=== PATIENT | male | born 1960 | race African-American/Black ===

== ENCOUNTER 2020-01-14 12:58 | Emergency (ER) | payer OTHER ==
[~2020-01-14] VITALS: Ht 185.4 cm; Wt 110.0 kg
[2020-01-14 13:01] VITALS: BP 154/94
[2020-01-14 15:23] LABS: CHLORIDE 105 mEq/L (98-107)
[2020-01-14 15:25] LABS: BASOPHILS % 1.3 % (0.0-2.0); EOSINOPHILS % 1.4 % (0.0-5.0); HEMATOCRIT. 43.5 % (42.0-52.0); HEMOGLOBIN. 14.8 g/dL (14.0-18.0); LYMPHOCYTES % 31.1 % (20.0-50.0); MEAN CORPUSCULAR HEMOGLOBIN 32.9 pg (28.0-32.0); MEAN CORPUSCULAR VOLUME 96.7 fL (80.0-94.0); MEAN PLATELET VOLUME 6.9 fl (7.4-10.4); MONOCYTES % 12.9 % (2.0-8.0); NEUTROPHILS % 53.3 % (40.0-76.0); PLATELET 129 x1000/uL (130-400); RED CELL DISTRIBUTION WIDTH 15.4 % (11.6-14.6)
[2020-01-14 15:46] LABS: ETHANOL BLOOD 282 mg/dL
== END 2020-01-14 16:20 | disposition home or self-care (01) ==
LOC: ER 13:17
DX: F10.129 Alcohol abuse with intoxication, unspecified (principal); Y90.8 Blood alcohol level of 240 mg/100 ml or more; M54.5 Low back pain; I10 Essential (primary) hypertension
CPT/HCPCS: 36415; 80053; 80307; 80320; 80329; 85025; 93005; 99285; G0480

== ENCOUNTER 2020-01-15 06:33 | Emergency (ER) | payer OTHER ==
[~2020-01-15] VITALS: Ht 177.8 cm; Wt 84.0 kg
[2020-01-15 06:39] VITALS: BP 149/95
== END 2020-01-15 07:17 | disposition home or self-care (01) ==
LOC: ER 06:33
DX: F10.129 Alcohol abuse with intoxication, unspecified (principal); I10 Essential (primary) hypertension; Y90.9 Presence of alcohol in blood, level not specified
CPT/HCPCS: 99281

== ENCOUNTER 2020-01-18 23:31 | Emergency (ER) | payer OTHER ==
[~2020-01-18] VITALS: Ht 180.3 cm; Wt 90.0 kg
[2020-01-19 01:15] VITALS: BP 148/84
== END 2020-01-19 01:36 | disposition home or self-care (01) ==
LOC: ER 23:31
DX: F10.129 Alcohol abuse with intoxication, unspecified (principal); Y90.9 Presence of alcohol in blood, level not specified; G89.29 Other chronic pain; M54.89 Other dorsalgia
CPT/HCPCS: 99283